=== PATIENT | male | born 1975 | race Caucasian/White ===

== ENCOUNTER 2017-02-07 16:53 | Outpatient (RCR) | payer OTHER ==
[~2017-02-07 16:53] MED LIST: DEXAMETHASONE 4 MG/ML SYR (FOR IONTOPHORESIS) TOP SCH
== END 2017-02-21 15:33 | disposition home or self-care (01) ==
PROVIDERS: ATTEND Family Medicine
DX: S67.22XD Crushing injury of left hand, subsequent encounter (principal); R20.9 Unspecified disturbances of skin sensation; R22.32 Localized swelling, mass and lump, left upper limb; W31.9XXD Contact with unspecified machinery, subsequent encounter; Y92.63 Factory as the place of occurrence of the external cause